=== PATIENT | male | born 1975 | race Caucasian/White ===

== ENCOUNTER 2018-08-10 23:48 | Inpatient (IN) | payer OTHER ==
[~2018-08-10] VITALS: Ht 182.9 cm; Wt 90.3 kg
[~2018-08-10 23:48] MED LIST: LIPITOR 20 MG T20 M1 PO; LISINOPRIL10 MG PO; LOPRESSOR25 PO; NEXIUM40 MG PO
[2018-08-10 23:49] VITALS: BP 167/115
[2018-08-11] MEDS ORDERED: NEXIUM40 MG (00:01)
[2018-08-11 00:23] LABS: ABSOLUTE BASOPHILS 0.1 thou/uL (0.0-0.2); ABSOLUTE EOSINOPHILS 0.2 thou/uL (0.0-0.7); ABSOLUTE LYMPHOCYTES 1.7 thou/uL (0.8-5.3); ABSOLUTE NEUTROPHILS 7.1 thou/uL (1.6-8.1); EOSINOPHILS 2.4 %; HEMATOCRIT 46.1 % (42.0-52.0); HEMOGLOBIN 15.5 gm/dL (14.0-18.0); LYMPHOCYTES 16.6 %; MCH 30.2 pg (26.0-34.0); MCHC 33.5 g/dL (28.0-37.0); MONOCYTES 10.3 %; NUCLEATED RBCS 0 /100WBC; PLATELET COUNT* 254 thou/uL (150-400); POLYS 69.7 %; RBC 5.12 mil/uL (4.50-6.00); RDW-CV 14.5 % (10.5-14.5); WBC 10.2 thou/uL (4.0-11.0)
[2018-08-11 00:25] LABS: PCO2 37.9 mmHg (35.0-45.0); PO2 69.5 mmHg (75.0-100.0); pH 7.406 (7.340-7.450)
[2018-08-11 00:49] LABS: ALBUMIN 3.9 g/dL (3.4-5.0); ALKALINE PHOSPHATASE 92 U/L (46-116); ANION GAP 9 mmol/L (7-16); BUN 14 mg/dL (7-18); CALCIUM 9.2 mg/dL (8.5-10.1); CHLORIDE 103 mmol/L (98-107); CO2 26 mmol/L (21-32); CREATININE 1.2 mg/dL (0.6-1.3); GLUCOSE 134 mg/dL (70-99); POTASSIUM 3.8 mmol/L (3.5-5.1); SGOT 31 U/L (15-37); SGPT 17 U/L (30-65); SODIUM 138 mmol/L (136-145); TOTAL BILIRUBIN 0.4 mg/dL (<0.1-1.0); TOTAL PROTEIN 7.8 g/dL (6.4-8.2)
[2018-08-11 00:52] LABS: TROPONIN-I LEVEL <0.06 ng/mL (<0.06)
[2018-08-11 02:50] VITALS: BP 128/73
[2018-08-11 03:00] VITALS: BP 132/98
[2018-08-11 08:15] VITALS: BP 147/77
[2018-08-11 12:00] VITALS: BP 113/62
[2018-08-11 16:00] VITALS: BP 122/70
[2018-08-12] VITALS: BP 152/85
[2018-08-12 04:31] VITALS: BP 111/65
[2018-08-12 04:47] LABS: HEMATOCRIT 39.9 % (42.0-52.0); MCH 30.1 pg (26.0-34.0); MCHC 33.1 g/dL (28.0-37.0); MCV 90.9 fL (80.0-100.0); MPV 8.3 fl. (7.2-11.1); RBC 4.39 mil/uL (4.50-6.00); RDW-CV 14.8 % (10.5-14.5); WBC 16.6 thou/uL (4.0-11.0)
[2018-08-12 05:01] LABS: ANION GAP 9 mmol/L (7-16); BUN 23 mg/dL (7-18); CHLORIDE 105 mmol/L (98-107); CHOLESTEROL 174 mg/dL (<200); CO2 24 mmol/L (21-32); CREATININE 1.2 mg/dL (0.6-1.3); GLUCOSE 176 mg/dL (70-99); HDL CHOLESTEROL 31 mg/dL (>40); LDL CHOLESTEROL 127 mg/dL (<100); MAGNESIUM 2.1 mg/dL (1.8-2.4); POTASSIUM 4.2 mmol/L (3.5-5.1); SODIUM 138 mmol/L (136-145); TC:HDL 5.6 Ratio (Not establshd); TRIGLYCERIDE 83 mg/dL (<150); VLDL 17 mg/dL (<40)
[2018-08-12 05:04] LABS: SERUM ASSESSMENT CLEAR
[2018-08-12 05:06] LABS: HEMOGLOBIN 13.2 gm/dL (14.0-18.0)
[2018-08-12 11:34] LABS: INFLUENZA A ANTIGEN None Detected (None Detect); INFLUENZA B ANTIGEN None Detected (None Detect)
[2018-08-12 12:45] VITALS: BP 135/73
[2018-08-12 15:30] VITALS: BP 135/78
[2018-08-13 01:12] VITALS: BP 133/76
[2018-08-13 09:59] VITALS: BP 133/71
--- NOTE | 2018-08-13 14:53 | EKG ---
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
[2018-08-13 17:17] VITALS: BP 145/91
[2018-08-14] VITALS: BP 146/87
[2018-08-14 04:00] VITALS: BP 140/60
[2018-08-14 04:31] LABS: HEMATOCRIT 40.9 % (42.0-52.0); HEMOGLOBIN 13.7 gm/dL (14.0-18.0); MCH 30.7 pg (26.0-34.0); MCHC 33.6 g/dL (28.0-37.0); MCV 91.5 fL (80.0-100.0); MPV 8.1 fl. (7.2-11.1); RBC 4.47 mil/uL (4.50-6.00); WBC 10.2 thou/uL (4.0-11.0)
[2018-08-14 04:42] LABS: CALCIUM 8.7 mg/dL (8.5-10.1); CREATININE 1.2 mg/dL (0.6-1.3); MAGNESIUM 2.5 mg/dL (1.8-2.4); POTASSIUM 4.4 mmol/L (3.5-5.1)
[2018-08-14 07:40] VITALS: BP 136/92
[2018-08-14] MEDS ORDERED: LISINOPRIL10 MG PO (11:01)
[2018-08-14] MEDS ORDERED: NEBULIZER MISCELL (11:01)
[2018-08-14] MEDS ORDERED: SINGULAIR 10 MG10 M1 PO (11:01)
[2018-08-14] MEDS ORDERED: DOXYCYCLINE 10100 MG PO (11:01)
[2018-08-14] MEDS ORDERED: PREDNISONE 10 M10 MG PO (11:01)
[2018-08-14] MEDS ORDERED: PULMICORT0.5 MG/2 M INH (11:01)
[2018-08-14] MEDS ORDERED: BENZONATATE100 MG PO (11:01)
[2018-08-14] MEDS ORDERED: IPRAT-ALBUT 0.5-3 ML INH (11:01)
[2018-08-14] MEDS ORDERED: BROVANA15 MCG/2 M INH (11:01)
[2018-08-14 11:54] VITALS: BP 136/92
[2018-08-14 12:27] VITALS: BP 147/99
== END 2018-08-14 13:15 | disposition home or self-care (01) | DRG 189 ==
LOC: M.ERS 23:48 → M.TBA-ER 08-11 02:02 → M.3W 08-11 02:02
PROVIDERS: Internal Medicine; Personal Emergency Response Attendant; ADMIT Internal Medicine
DX: J96.01 Acute respiratory failure with hypoxia (principal); J44.1 Chronic obstructive pulmonary disease with (acute) exacerbation; I10 Essential (primary) hypertension; E78.00 Pure hypercholesterolemia, unspecified; F17.210 Nicotine dependence, cigarettes, uncomplicated; Z91.14 Patient's other noncompliance with medication regimen; Z79.899 Other long term (current) drug therapy; Z88.5 Allergy status to narcotic agent

== ENCOUNTER 2018-12-31 00:58 | Inpatient (IN) | payer OTHER ==
[2018-12-31] VITALS (30 sets, daily range): BP systolic 66–202; BP diastolic 40–124
[~2018-12-31] VITALS: Ht 182.8 cm; Wt 90.3 kg
--- NOTE | ~2018-12-31 | CON ---
[address] [address] CONSULTATION Name: ELLEN BARROW Room: [address] IN .R.#: [id number] Admission: 12/31/18 Attend Phys: Madalyn Solorzano MD Discharge: Date of : 75 Report #: [id number] THIS REPORT FOR: //name// CC: Sahra Solorzano DATE OF SERVICE: 12/31/2018 REASON FOR CONSULTATION: The patient is a 43-year-old gentlemen who was seen in consultation for acute kidney injury. Consult is obtained by Dr. Solorzano. HISTORY OF PRESENT ILLNESS: The patient is a 43-year-old. He was seen in the ER last night with worsening shortness of breath, which is of few days' duration. He apparently was bad enough to be promptly intubated after he was found to be in respiratory acidosis. Apparently, the patient was seen by his primary care doctor on Tuesday. His blood pressure was found to be ave markedly elevated. There seems to be some issues with noncompliance to medications. His blood pressure meds were restarted. On my admission records, it shows that the patient was on an PANCHO inhibitor, lisinopril. According to the medical records, no cardiac history has been reported. The patient is a heavy smoker. His chest x-ray does show some mild cardiomegaly and some emphysematous changes. In the ER, he was promptly intubated. He was given a dose of Lasix. He was also found to be in hypertensive urgency. I saw the patient in the intensive care unit. He is intubated and sedated. He is on 80% FiO2 on the vent. He is sedated with propofol and Versed. After being hypertensive in the ER, his blood pressure dropped into the 80s with the sedation meds. He has made around 500 mL of urine since Oh catheter was placed and the Lasix dose was given. PAST MEDICAL HISTORY: Hypertension, COPD, dyslipidemia and tobacco abuse. HOME MEDICATIONS: Nebulizers, budesonide inhaler, Singulair, doxycycline, lisinopril and prednisone. PERSONAL, SOCIAL AND FAMILY HISTORY: Reviewed only from the chart. Heavy history of smoking reported. I have no information about the patient's occupation or family situation. REVIEW OF SYSTEMS: Unobtainable from the patient. PHYSICAL EXAMINATION: GENERAL: On my examination, the patient is intubated and sedated. VITAL SIGNS: His blood pressure is in the 80s systolic. His pulse rate is 112, temperature 36.7. HEENT: His mucous membranes are dry. ET tube is in place. NECK: Neck veins are flat. LUNGS: Diminished at the bases. [place] [address] CONSULTATION Name: ELLEN BARROW Room: [address] IN [facility]#: [id number] Admission: 12/31/18 Attend Phys: Madalyn Solorzano MD Discharge: Date of : 75 Report #: [id number] ABDOMEN: Soft. SKIN: Dry. EXTREMITIES: Show no edema. NEUROLOGIC: He is sedated, could not perform in detail. LABORATORY DATA: His labs were reviewed. White count is 13.3, hemoglobin is 13.1 and platelets are 280,000. His blood gas at this time of admission showed pH of 7.116 with pCO2 of 67 and bicarbonate of 21.2. Repeat one showed a pH of 7.210 and pCO2 of 59. He is oxygenating appropriately at that time. His chest x-ray was reviewed. His metabolic panel shows his sodium is 141, potassium is 4.0, chloride 106, bicarbonate 23, BUN is 20, creatinine is 1.6, calcium is 7.7 and glucose 296. AST 45, ALT 26, alkaline phosphatase 97 and albumin 3.1. Urinalysis shows 3+ protein, 1+ blood, many rbc's, wbc's in clumps, many bacteria and fine and coarse granular casts. Review of labs from before shows his creatinine was 1.2 a few months ago. Even though he does not carry a diagnosis of diabetes, his blood sugars have been constantly elevated since few months ago. ASSESSMENT: 1. Acute kidney injury with a baseline creatinine of 1.2. 2. The patient has heavy history of smoking, hypertension and chronic obstructive pulmonary disease. 3. He was recently initiated on PANCHO inhibitors also and given a course of antibiotics. 4. Acute kidney injury could be multifactorial with respiratory distress, hypertensive urgency, restart of PANCHO inhibitors and some volume depletion. 5. Tobacco abuse. 6. Cardiomegaly. PLAN: 1. Acute kidney injury from being hypertensive on admission. The patient is now hypotensive. His clinical exam suggests he is volume depleted. He was given a dose of Lasix in the ER. He is on normal saline at 50 mL an hour. We will watch closely as his blood pressures could be low because of the sedation also which is being lowered down to the least amount necessary. 2. If the blood pressure drops any further of the MAP, drops below 65, I would give him a bolus of 500 mL. 3. Close monitoring of renal function. 4. Check a CK level. 5. Check an ultrasound of the kidneys. 6. Send urine indices. 7. I suspect the patient may have undiagnosed diabetes also. His blood sugars have constantly been elevated. We will quantify the urine protein and also send serologies in light of the blood seen in the urine. 8. Hypertension management. Use hydralazine if needed, but for now, [place] [address] CONSULTATION Name: ELLEN BARROW Room: [address] IN [facility].#: [id number] Admission: 12/31/18 Attend Phys: Madalyn Solorzano MD Discharge: Date of : 75 Report #: [id number] Thank you for the consultation. We will continue to follow and provide necessary support. By: [id number] Becker MD /salina
[~2018-12-31 00:58] MED LIST changes: +BENZONATATE100 MG PO; +BROVANA15 MCG/2 M INH; +DOXYCYCLINE 10100 MG PO; +IPRAT-ALBUT 0.5-3 ML INH; +NEBULIZER MISCELL; +NEXIUM40 MG; +PREDNISONE 10 M10 MG PO; +PULMICORT0.5 MG/2 M INH; +SINGULAIR 10 MG10 M1 PO
[2018-12-31 01:36] LABS: ABSOLUTE BASOPHILS 0.2 thou/uL (0.0-0.2); ABSOLUTE EOSINOPHILS 0.3 thou/uL (0.0-0.7); ABSOLUTE LYMPHOCYTES 4.2 thou/uL (0.8-5.3); ABSOLUTE MONOCYTES 0.5 thou/uL (0.0-1.2); ABSOLUTE NEUTROPHILS 8.2 thou/uL (1.6-8.1); BASOPHILS 1.3 %; EOSINOPHILS 2.3 %; HEMATOCRIT 40.2 % (42.0-52.0); HEMOGLOBIN 13.1 gm/dL (14.0-18.0); LYMPHOCYTES 31.2 %; MCH 30.4 pg (26.0-34.0); MCHC 32.6 g/dL (28.0-37.0); MCV 93.3 fL (80.0-100.0); MONOCYTES 3.5 %; MPV 8.5 fl. (7.2-11.1); NUCLEATED RBCS 0 /100WBC; PLATELET COUNT* 280 thou/uL (150-400); POLYS 61.7 %; RBC 4.32 mil/uL (4.50-6.00); RDW-CV 14.6 % (10.5-14.5); WBC 13.3 thou/uL (4.0-11.0)
[2018-12-31 01:50] LABS: ANION GAP 12 mmol/L (7-16); BUN 20 mg/dL (7-18); CALCIUM 7.7 mg/dL (8.5-10.1); CHLORIDE 106 mmol/L (98-107); CO2 23 mmol/L (21-32); CREATININE 1.6 mg/dL (0.6-1.3); GLUCOSE 296 mg/dL (70-99); SODIUM 141 mmol/L (136-145)
[2018-12-31 01:54] LABS: INR 1.1; PROTIME 11.1 Seconds (9.20-11.50)
[2018-12-31 01:55] LABS: URINE BILIRUBIN NEGATIVE (Negative); URINE BLOOD 1+ (Negative); URINE CLARITY CLEAR; URINE COLOR YELLOW; URINE GLUCOSE-RANDOM TRACE (Negative); URINE KETONES NEGATIVE (Negative); URINE LEUKOCYTES-REFLEX NEGATIVE (Negative); URINE NITRITE-REFLEX NEGATIVE (Negative); URINE PROTEIN 3+ (Negative); URINE SPECIFIC GRAVITY 1.025 (1.005-1.030)
[2018-12-31 02:01] LABS: BACTERIA-REFLEX >30 Many /HPF (None Seen); COARSE GRANULAR CASTS 0-3 Few /LPF (None Seen); CRYSTALS None Seen /LPF (None Seen); FINE GRANULAR CASTS 0-3 Few /LPF (None Seen); HYALINE CASTS 0-3 Few /LPF (None Seen); MUCUS >6 Heavy strn/LPF (None Seen); SQUAMOUS 0-3 Few /LPF (0-3); WBC CLUMPS Few (None Seen)
[2018-12-31 02:01] LABS: ALBUMIN 3.1 g/dL (3.4-5.0); ALKALINE PHOSPHATASE 97 U/L (46-116); NT-PRO BRAIN NAT PEPTIDE 2499 pg/mL (<300); SGOT 45 U/L (15-37); SGPT 26 U/L (30-65); TOTAL BILIRUBIN 0.3 mg/dL (<0.1-1.0); TOTAL PROTEIN 6.2 g/dL (6.4-8.2); TROPONIN-I LEVEL <0.06 ng/mL (<0.06)
[2018-12-31 03:07] LABS: BE -9.3 mmol/L (-2 to +3); PO2 91.3 mmHg (75.0-100.0)
[2018-12-31 03:09] LABS: PCO2 67.4 mmHg (35.0-45.0); pH 7.116 (7.340-7.450)
[2018-12-31 05:41] LABS: BE -5.6 mmol/L (-2 to +3); PO2 114.8 mmHg (75.0-100.0)
[2018-12-31 05:44] LABS: PCO2 59.4 mmHg (35.0-45.0)
[2018-12-31 08:08] LABS: BE -3.5 mmol/L (-2 to +3); PCO2 38.4 mmHg (35.0-45.0); PO2 120.5 mmHg (75.0-100.0); pH 7.364 (7.340-7.450)
[2018-12-31 08:50] LABS: CHOLESTEROL 179 mg/dL (<200); HDL CHOLESTEROL 21 mg/dL (>40); LDL CHOLESTEROL 129 mg/dL (<100); TC:HDL 8.5 Ratio (Not establshd); TRIGLYCERIDE 146 mg/dL (<150); VLDL 29 mg/dL (<40)
[2018-12-31 08:51] LABS: SERUM ASSESSMENT Clear
[2018-12-31 13:56] LABS: CALCIUM 8.1 mg/dL (8.5-10.1); CREATININE 1.2 mg/dL (0.6-1.3); POTASSIUM 3.7 mmol/L (3.5-5.1)
--- NOTE | 2018-12-31 17:16 | NUR ---
PT ON VENT AND SEDATED WITH VERSED AND PROPOFOL, TITRATED PER PROTOCOL. REMAINS CALM AND AROUSABLE TO PAIN. NS AT 100 MLS/HR. BP SOFT IN THE MORNING, STABLE DURING THE DAY, VSS. ART LINE INSERTED. VQ SCAN AND US RENAL DONE. NG AT LIS. NEW IV STARTED AT LT FOREARM. ROUTINE CARE GIVEN.
[2018-12-31 18:08] LABS: COMPLEMENT-C4 18 mg/dL (14-44)
[2019-01-01] VITALS (27 sets, daily range): BP systolic 77–175; BP diastolic 35–101
[2019-01-01 04:17] LABS: ABSOLUTE LYMPHOCYTES 0.8 thou/uL (0.8-5.3); ABSOLUTE MONOCYTES 0.3 thou/uL (0.0-1.2); MONOCYTES 2.6 %; RDW-CV 14.8 % (10.5-14.5)
[2019-01-01 04:19] LABS: BASOPHILS 0.2 %; HEMOGLOBIN 12.3 gm/dL (14.0-18.0); LYMPHOCYTES 7.6 %; MCH 30.6 pg (26.0-34.0); MCHC 33.4 g/dL (28.0-37.0); MCV 91.6 fL (80.0-100.0); MPV 8.7 fl. (7.2-11.1); NUCLEATED RBCS 0 /100WBC; PLATELET COUNT* 203 thou/uL (150-400); POLYS 89.6 %; RBC 4.04 mil/uL (4.50-6.00); WBC 10.1 thou/uL (4.0-11.0)
[2019-01-01 05:16] LABS: ALBUMIN 2.8 g/dL (3.4-5.0); CALCIUM 8.2 mg/dL (8.5-10.1); POTASSIUM 3.7 mmol/L (3.5-5.1); TOTAL BILIRUBIN 0.3 mg/dL (<0.1-1.0); TOTAL PROTEIN 5.8 g/dL (6.4-8.2)
[2019-01-01 05:20] LABS: PHOSPHORUS* 3.1 mg/dL (2.5-4.9); URIC ACID* 4.2 mg/dL (2.6-7.2)
--- NOTE | 2019-01-01 06:55 | NUR ---
VSS. ASSESSMENT CHARTED. PATIENT PROGRESSING TOWARD GOALS. LUNG SOUNDS IMPROVING. PATIENT REMAINS ON PROPOFOL AT 10 AND VERSED AT 5. PATIENT'S EX IN ROOM AT BEDSIDE AT START OF SHIFT. URINE OUTPUT CLOUDY AND FILLED WITH SEDIMENT.
[2019-01-01 08:43] LABS: BE -4.3 mmol/L (-2 to +3); PCO2 32.3 mmHg (35.0-45.0); PO2 116.6 mmHg (75.0-100.0); pH 7.399 (7.340-7.450)
--- NOTE | 2019-01-01 09:01 | CON ---
[address] [address] CONSULTATION Name: ELLEN BARROW Room: [address] IN [facility].#: [id number] Admission: 12/31/18 Attend Phys: Madalyn Solorzano MD Discharge: Date of : 75 Report #: [id number] THIS REPORT FOR: //name// CC: Sahra Solorzano DATE OF SERVICE: 12/31/2018 REASON FOR CONSULTATION: Acute respiratory failure. HISTORY OF PRESENT ILLNESS: This is a 43-year-old male patient, apparently has history of COPD, on nebulization treatment at home, who presented to the Emergency Room with increasing shortness of breath of couple of weeks' duration. Apparently, he followed with his primary care physician recently and he was started back on his antihypertensive medication because of high blood pressure. He smokes up to 2 packs per day. During my visit, he was intubated on sedation, did not participate in the history. He received Lasix in the ER and a CT scan showed bilateral infiltrates with signs of fluid overload. During my visit, he was on propofol low dose and Versed 6 mg per hour, looking comfortable and he was on assist control ventilation. ALLERGIES: CODEINE. MEDICATIONS: He is on DuoNeb, Brovana, Pulmicort, doxycycline, lisinopril. PAST MEDICAL HISTORY: Hypertension, history of MRSA in the past, hyperlipidemia, history of COPD, active smoker. PAST SURGICAL HISTORY: No major chest surgery. FAMILY HISTORY: Not obtainable due to the patient's condition. SOCIAL HISTORY: Per the record, he is an everyday smoker up to 2 packs per day, does not drink alcohol excessively. No history of drug abuse. REVIEW OF SYSTEMS: Unobtainable due to the patient's condition. PHYSICAL EXAMINATION: VITAL SIGNS: He is on the vent, O2 saturation 98%, blood pressure around 100 systolic over 50, pulse rate of 100, temperature 36.7. GENERAL: Looks his stated age, intubated and sedated. HEAD: Normocephalic, atraumatic. EYES: Pupils reactive to light. ORAL CAVITY: Moist mucous membrane. Mallampati of 2-3. NECK: Supple. Full range of movement. Trachea central. CHEST: Diminished air movement bilaterally with prolonged [place] [address] CONSULTATION Name: ELLEN BARROW Room: [address] IN [facility]#: [id number] Admission: 12/31/18 Attend Phys: Madalyn Solorzano MD Discharge: Date of : 75 Report #: [id number] rare end-expiratory wheezes, rhonchi at the bases. HEART: S1, S2, no murmur. ABDOMEN: Benign, soft, lax, nontender, positive bowel sounds. No masses felt. EXTREMITIES: Lower extremity, trace edema, no calf tenderness. SKIN: Normal for age and race, no rash. NEUROLOGIC: He is sedated. PSYCHIATRIC: Mood and affect could not be evaluated. LABORATORY DATA: He had multiple chest imaging including chest x-ray and CT scan. The chest x-ray showed signs of vascular congestion with cardiomegaly and interstitial prominence with bilateral consolidation, which was documented in the CT scan, although the official report of the CT scan is still pending. White blood cell count 13.3, hemoglobin 15.1 and platelets of 280. He had multiple sets of ABGs initially demonstrating hypercapnic respiratory failure; however, the last ABG this morning 7.36/38/120 and this was done on 70% FiO2. Since then, his FiO2 was decreased. His BNP was elevated. His creatinine was 1.6 with a BUN of 20, potassium 4, sodium 141. IMPRESSION: 1. Acute hypoxic and hypercapnic respiratory failure. 2. Pulmonary infiltrate. 3. Fluid overload. 4. Pulmonary edema. 5. Congestive heart failure, could be related to hypertension. 6. Acute renal failure. 7. Pneumonia. 8. Consolidation. 9. Chronic obstructive pulmonary disease exacerbation. The patient's respiratory failure is multifactorial related to fluid overload, pleural effusion, pneumonia and chronic obstructive pulmonary disease exacerbation. At this point, we are waiting for the final official CTA report. I would continue the antibiotic, continue steroids, scheduled nebulization treatment, monitor fluid status and avoid fluid overload. Echo is pending this morning. I would keep him on the current plan of sedation; however, he might need more Versed and fentanyl compared to propofol because of soft blood pressure at this point. Consider diuresis p.r.n. We will do a repeat chest x-ray. We will consider weaning trial in the morning. Thank you for the consult. Discussed with RN. Critical care time 35 minutes. <ELECTRONICALLY SIGNED> By: Samm Camarillo MD 01/01/19 0901 0848 0915Wale Marroquin MD /nt
--- NOTE | 2019-01-01 10:44 | NUR ---
CM spoke with Pt's (they are ) in [facility]. Pt is normally A&O. Resides at home. Active and independent. No DME. No hx of HH or SNF. Supportive family. Goal is home at ri. Following.
[2019-01-01 11:52] LABS: pH 7.398 (7.340-7.450)
[2019-01-01 12:07] LABS: PO2 58.3 mmHg (75.0-100.0)
[2019-01-01 15:06] LABS: HIV-1/HIV-2 ANTIBODY Non Reactive (Non Reactive)
--- NOTE | 2019-01-01 15:38 | NUR ---
PT EXTUBATED AT 1005, EXTUBATION UNEVENTFUL. O2 SUPPORT OF NC AT 4L/MIN, INCREASED TO 5 L/MIN AFTER POST EXTUBATION PO2 59. BED SIDE SWALLOW PASSED. OKAY FOR CLEAR LIQUID DIET PER PULMONOLOGY.
--- NOTE | 2019-01-01 16:56 | 2DMMODE ---
[place] [address] 2 D/M-MODE ECHOCARDIOGRAM Name: ELLEN BARROW Room: [address] IN .R.#: [id number] Admission: 12/31/18 Attend Phys: Madalyn Solorzano, Discharge: Date of : 75 Date of Service: 01/01/19 1656 Report #: [id number] THIS REPORT FOR: //name// APPROVED REPORT Study performed: 01/01/2019 09:30:57 EXAM: Comprehensive 2D, Doppler, and color-flow Echocardiogram Patient Location: Bedside BSA: 2.09 HR: 119 bpm BP: 147/87 mmHg Other Information Study Quality: Good Indications Respiratory Failure, Pulmonary Edema, UTI 2D Dimensions IVSd: 13.08 (7-11mm) LVOT Diam: 22.87 (18-24mm) LVDd: 59.72 mm PWd: 12.90 (7-11mm) Ascending Ao: 29.60 (22-36mm) LVDs: 58.92 (25-40mm) Aortic Root: 33.13 mm Volumes Left Atrial Volume (Systole) LA ESV Index: 30.80 mL/m2 Aortic Valve AoV Peak Sergey.: 0.78 m/s AO Peak Gr.: 2.45 mmHg LVOT Max P.19 mmHg AO Mean Gr.: 1.72 mmHg LVOT Mean P.23 mmHg LVOT Max V: 0.74 m/s AO V2 VTI: 10.88 cm LVOT Mean V: 0.52 m/s LIZBETH (VTI): 4.88 cm2 LVOT V1 VTI: 12.94 cm Mitral Valve E/A Ratio: 4.94 MV Decel. Time: 200.54 ms MV E Max Sergey.: 0.97 m/s MV PHT: 58.16 ms MVA (PHT): 3.78 [place] [address] 2 D/M-MODE ECHOCARDIOGRAM Name: ELLEN BARROW Room: [address] IN [facility]#: [id number] Admission: 12/31/18 Attend Phys: Madalyn Solorzano, Discharge: Date of : 75 Date of Service: 01/01/19 1656 Report #: [id number] TDI E/Lateral E': 12.13 E/Medial E': 16.17 Medial E' Sergey.: 0.06 m/s Lateral E' Sergey.: 0.08 m/s Pulmonary Valve PV Peak Sergey.: 0.53 m/s PV Peak Gr.: 1.11 mmHg Left Ventricle Left ventricle is moderately dilated. There is diffuse hypokinesis of left ventricular wall motion. There is normal left ventricular wall thickness. Left ventricular ejection fraction is moderate to severely decreased. LVEF is 25-30%. Right Ventricle The right ventricle is normal size. The right ventricular systolic function is normal. Atria The left atrium size is normal. The right atrium size is normal. Aortic Valve The aortic valve is normal in structure. No aortic regurgitation is present. There is no aortic valvular stenosis. Mitral Valve The mitral valve is normal in structure. Moderate mitral regurgitation. No evidence of mitral valve stenosis. Tricuspid Valve The tricuspid valve is normal in structure. There is no tricuspid valve regurgitation noted. Pulmonic Valve The pulmonary valve is normal in structure. There is no pulmonic valvular regurgitation. Great Vessels The aortic root is normal in size. The inferior vena cava is dilated with no decrease in size with inspiration Pericardium There is [place] [address] 2 D/M-MODE ECHOCARDIOGRAM Name: ELLEN BARROW Room: [address]#: [id number] Admission: 12/31/18 Attend Phys: Madalyn Solorzano, Discharge: Date of : 75 Date of Service: 01/01/19 1656 Report #: [id number] <Conclusion> Left ventricle is moderately dilated. There is normal left ventricular wall thickness. Left ventricular ejection fraction is moderate to severely decreased. LVEF is 25-30%. The right ventricle is normal size. The aortic valve is normal in structure. The mitral valve is normal in structure. Moderate mitral regurgitation. No evidence of mitral valve stenosis. The tricuspid valve is normal in structure. The inferior vena cava is dilated with no decrease in size with inspiration There is no pericardial effusion. There is diffuse hypokinesis of left ventricular wall motion. <ELECTRONICALLY SIGNED> By: Natan Bond MD, [facility] 01/01/19 [phone] Natan Bond MD, FACC /INF
--- NOTE | 2019-01-01 16:57 | EKG ---
[place] [address] ELECTROCARDIOGRAM REPORT Name: ELLEN BARROW Room: [address] ADM IN M.R.#: [id number] Admission: 12/31/18 Attend Phys: Madalyn Solorzano MD Discharge: Date of : 75 Report #: [id number] THIS REPORT FOR: //name// [facility] ED Test Date: 2018-12-31 Test Time: 01:17:25 Pat Name: ELLEN BARROW Department: Room: [facility] Gender: M Template Maker: : 1975 Requested By: Mony Hines Order Number: [id number] MD: Joshua Ma Measurements Intervals [place] Rate: 133 P: 47 ME: 127 QRS: 21 QRSD: 94 T: 85 QT: 312 QTc: 465 Interpretive Statements Sinus tachycardia Probable left atrial enlargement RSR' in V1 or V2, probably normal variant Left ventricular hypertrophy Compared to ECG 08/10/2018 23:55:49 RSR' in V1 or V2 now present Electronically Signed On 01-01-2019 16:57:27 CDT by Joshua Ma [email or web address] <ELECTRONICALLY SIGNED> By: Joshua Ma MD, FACC 01/01/19 1657 6 Joshua Ma MD, [facility] /EPI
--- NOTE | 2019-01-01 17:05 | EKG ---
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[facility] : 1975 Requested By: Cinthya Pérez Order Number: [id number] MD: Joshua Ma Measurements Intervals [place] Rate: 114 P: 66 MS: 154 QRS: 20 QRSD: 92 T: 75 QT: 360 QTc: 496 Interpretive Statements Sinus tachycardia Probable left atrial enlargement Probable left ventricular hypertrophy Borderline prolonged QT interval Compared to ECG 08/10/2018 23:55:49 No significant changes Electronically Signed On 01-01-2019 17:04:55 CDT by Joshua Ma [email or web address] <ELECTRONICALLY SIGNED> By: Joshua Ma MD, [facility] 01/01/19 1704 0839 0839 Joshua Ma MD, [facility] /EPI
[2019-01-01 18:11] LABS: HEPATITIS B SURFACE AG Negative (Negative)
--- NOTE | 2019-01-01 18:51 | NUR ---
PT IS ALERT AND ORIENTED, ST ON THE MONITOR. SATS >92% IN NC 5L/MIN. BP STABLE. TOLERATING CLEAR LIQUID DIET. GOOD OUTPUT. NS AT 100 MLS/HR. ECHO DONE. NEPHRO SIGNED OFF ON HIM. SELF CARE BATH AND ORAL CARE GIVEN.
[2019-01-02] VITALS (23 sets, daily range): BP systolic 109–176; BP diastolic 73–116
[2019-01-02 05:01] LABS: HEMATOCRIT 38.4 % (42.0-52.0); HEMOGLOBIN 12.8 gm/dL (14.0-18.0); MCH 30.7 pg (26.0-34.0); MCHC 33.4 g/dL (28.0-37.0); MCV 91.8 fL (80.0-100.0); MPV 9.3 fl. (7.2-11.1); RBC 4.18 mil/uL (4.50-6.00); RDW-CV 15.3 % (10.5-14.5); WBC 11.9 thou/uL (4.0-11.0)
[2019-01-02 05:32] LABS: ALBUMIN 2.8 g/dL (3.4-5.0); CALCIUM 8.3 mg/dL (8.5-10.1); MAGNESIUM 2.4 mg/dL (1.8-2.4); TOTAL BILIRUBIN 0.2 mg/dL (<0.1-1.0); TOTAL PROTEIN 5.9 g/dL (6.4-8.2)
[2019-01-02 05:43] LABS: BE -5.1 mmol/L (-2 to +3); PCO2 32.4 mmHg (35.0-45.0); PO2 90.3 mmHg (75.0-100.0); pH 7.384 (7.340-7.450)
[2019-01-02 11:51] LABS: URINE BILIRUBIN NEGATIVE (Negative); URINE BLOOD 1+ (Negative); URINE CLARITY CLEAR; URINE COLOR YELLOW; URINE GLUCOSE-RANDOM NEGATIVE (Negative); URINE KETONES NEGATIVE (Negative); URINE LEUKOCYTES-REFLEX NEGATIVE (Negative); URINE NITRITE-REFLEX NEGATIVE (Negative); URINE PROTEIN NEGATIVE (Negative); URINE SPECIFIC GRAVITY <= 1.005 (1.005-1.030); URINE UROBILINOGEN 0.2 E.U./dl (0.2-1.0)
[2019-01-02 11:58] LABS: BACTERIA-REFLEX 1-9 Few /HPF (None Seen); CASTS None Seen /LPF (None Seen); MUCUS None Seen strn/LPF (None Seen); SQUAMOUS 0-3 Few /LPF (0-3); URINE RBC 3-10 Few /HPF (0-2); URINE WBC-REFLEX 0-5 Rare /HPF (0-5)
[2019-01-02 11:59] LABS: CRYSTALS None Seen /LPF (None Seen)
--- NOTE | 2019-01-02 12:58 | NUR ---
RECEIVED REPORT AND ASSUMED CARE AT 0700.PT DENIES COMPLAINTS OF PAIN. ASSESSMENT COMPLETED CHARTED. MEDICATION ADMIN PER ORDERS. BED LOCKED IN LOWEST POSITION.
[2019-01-02 14:09] LABS: ANA INTERPRETATION Negative (Negative)
[2019-01-03] VITALS (20 sets, daily range): BP systolic 119–144; BP diastolic 74–102
[2019-01-03 02:10] LABS: GLYCOHEMOGLOBIN (HGB A1C) 5.7 % (4.8-5.6)
[2019-01-03 05:23] LABS: HEMOGLOBIN 12.9 gm/dL (14.0-18.0); MCH 30.6 pg (26.0-34.0); MCHC 33.8 g/dL (28.0-37.0); MCV 90.5 fL (80.0-100.0); MPV 8.8 fl. (7.2-11.1); RBC 4.2 mil/uL (4.50-6.00); RDW-CV 14.7 % (10.5-14.5); WBC 11.2 thou/uL (4.0-11.0)
[2019-01-03 05:45] LABS: CALCIUM 8.7 mg/dL (8.5-10.1); CREATININE 1.1 mg/dL (0.6-1.3); MAGNESIUM 2.3 mg/dL (1.8-2.4); POTASSIUM 3.7 mmol/L (3.5-5.1); TROPONIN-I LEVEL 0.09 ng/mL (<0.06)
--- NOTE | 2019-01-03 07:37 | NUR ---
VSS. PT REMAINED ON 3L O2 PER NC THROUGH THE NIGHT, O2 SAT REMAINED >92%. PT DENIED PAIN AND SOA THROUGHOUT THE NIGHT. NPO AFTER MIDNIGHT FOR POSSIBLE CARDIAC CATH TODAY. CALL LIGHT WITHIN REACH.
--- NOTE | 2019-01-03 10:54 | NUR ---
RECEIVED REPORT AND ASSUMED CARE AT 0700. VSS. PT DENIES COMPLAINTS OF PAIN. ASSESSMENT COMPLETED CHARTED, PT UP WITH ASSIST TO BSC. DISCUSSED PLAN OF CARE WITH PT, VERBALIZED UNDERSTANDING. CARDIAC CATH TODAY. TRNSF TO TELE. REPORT CALLED TO RN. PT TRANSPORTED BY WITH NURSING.
--- NOTE | 2019-01-03 13:08 | NUR ---
RE: CHF medication education. Spoke with the pt regarding heart failure medication. The discussion focused primarily on lisinopril and metoprolol. Discussed rationale for therapy and importance of compliance with the prescribed regimen. Reviewed possible side effects and potential management Left a medication information sheet and pharmacy contact information for any further questions or issues. Thank you.
--- NOTE | 2019-01-03 16:19 | NUR ---
PT TRANSFERED FROM ICU TO ROOM 210 AT APPROX 1050. PT IS A/O X4, FRUSTRATED DUE TO BEING NPO FOR CARDIAC CATH TODAY. LOVE IN PLACED DRAINING YELLOW URINE TO STAY UNTIL AFTER CATH. PTS VSS, ON 3L O2 SATS 95%, BED ALARM ON. PT LEFT UNIT FOR CATH AT [id number]. RETURNED APPROX 1530. PT DENIES PAIN, RIGHT GROIN SOFT, NO HEMATOMA, DRESSING C/D/I. PT PROVIDED WITH SNACKS, INSTRUCTED BEDREST UNTIL 2029. PT VERBALIZED UNDERSTANDING. WILL CONTINUE WITH PLAN OF CARE.
--- NOTE | 2019-01-03 16:21 | CARD ---
[address] [address] CARDIAC CATH REPORT Name: ELLEN BARROW Room: [address] IN [facility]#: [id number] Admission: 12/31/18 Attend Phys: Madalyn Solorzano MD Discharge: Date of : 75 Report #: [id number] THIS REPORT FOR: //name// APPROVED REPORT Study performed: 01/03/2019 14:32:47 Patient Details Patient Status: In-Patient Room #: The patient is a 43 year-old male Event Personnel Natan Bond Concession Supervisor, Sera Irene Web Applications Developer, Katty Velázquez RTR Scrub, Markus Willis HOSPITAL EDUCATION COORDINATOR Monitor, Georgie Neal RTR Monitor Procedures Performed Left Heart Cath w/or w/o Coronaries [id number] [facility] Indication CHF Current Status: Yes Risk Factors Hypercholesterolemia, Hypertension Procedure Narrative The patient was brought electively to the Cardiac Catheterization Laboratory and was prepped and draped in a sterile manner. The right femoral was infiltrated with 2% Lidocaine subcutaneous anesthesia. A Vanderwagen 6 FR sheath was inserted into the RFA. Coronary angiography was performed using coronary diagnostic catheters. The right coronary system was accessed and visualized with a Diagnostic catheter. The left coronary system was accessed and visualized with a JL 4 6F catheter. The left ventricle was accessed and visualized with a STRAIGHT PIG catheter. Left ventricular/Aortic Valve gradient assessed via catheter pullback. Pre-demployment femoral angiogram was performed . Closure device was deployed with a Fr MynxGrip 6/7F. The patient tolerated the procedure well and there were no complications associated with the procedure. There was no hematoma. Intraoperative Conscious Sedation Sedation start time: 1506 Case end Time: 1521 Fentanyl 25 mcg Versed 1 [place] [address] CARDIAC CATH REPORT Name: ELLEN BARROW Room: [address]#: [id number] Admission: 12/31/18 Attend Phys: Madalyn Solorzano MD Discharge: Date of : 75 Report #: [id number] Fluoro Time: 3.7 minutes Dose: DAP 65388 cGycm2 614 mGy Contrast Type and Amount: Visipaque 85 ml Coronary Angiography The patient's coronary anatomy is right dominant. Diagnostic Cath Left Main 0% narrowing LAD 0% narrowing Circumflex Nondominant vessel with 0% narrowing Right Coronary Large dominant vessel with 0% narrowing Left Ventriculography Left Ventriculography was not performed. Hemodynamics The aortic pressure is 126/69 mmHg with a mean of 88 mmHg. The left ventricular pressure is 145/10 mmHg with a mean of mmHg. The left ventricular end diastolic pressure is 33 mmHg. There was no gradient across the aortic valve upon pullback. Conclusion #1 normal coronary arteries #2 severe elevation of left ventricular end-diastolic pressure at rest Recommendations Medical Therapy <ELECTRONICALLY SIGNED> By: Natan Bond MD, [facility] 01/03/191619 19 19Natan Bond MD, FAC /INF
[2019-01-03 17:10] LABS: GLOBULIN TOTAL 2.6 g/dL (2.2-3.9); M-SPIKE Not Observed g/dL (Not Observed)
[2019-01-04] VITALS: BP 129/87
[2019-01-04 04:03] VITALS: BP 122/84
[2019-01-04 05:13] LABS: HEMATOCRIT 37.8 % (42.0-52.0); HEMOGLOBIN 12.8 gm/dL (14.0-18.0); MCH 30.8 pg (26.0-34.0); MCHC 33.9 g/dL (28.0-37.0); MCV 90.9 fL (80.0-100.0); RBC 4.15 mil/uL (4.50-6.00); RDW-CV 14.7 % (10.5-14.5); WBC 11.5 thou/uL (4.0-11.0)
[2019-01-04 05:17] LABS: ALBUMIN 2.8 g/dL (3.4-5.0); CALCIUM 8.5 mg/dL (8.5-10.1); CREATININE 1.1 mg/dL (0.6-1.3); MAGNESIUM 2.4 mg/dL (1.8-2.4); POTASSIUM 3.3 mmol/L (3.5-5.1); TOTAL BILIRUBIN 0.6 mg/dL (<0.1-1.0); TOTAL PROTEIN 5.9 g/dL (6.4-8.2)
[2019-01-04 08:00] VITALS: BP 141/97
[2019-01-04 11:40] VITALS: BP 117/87
--- NOTE | 2019-01-04 11:46 | NUR ---
Spoke with , do not anticipate dc until early next week. Pt may need HH at dc.
--- NOTE | 2019-01-04 11:47 | NUR ---
Spoke with , Pt not medically stable for dc. Anticipate a few more days in the hospital. Pt may need HH at dc. Following.
--- NOTE | 2019-01-04 12:09 | EKG ---
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 : 1975 Requested By: Madalyn Solorzano Order Number: [id number] Reading MD: Natan Bond Measurements Intervals [place] Rate: 89 P: 54 IN: 160 QRS: 23 QRSD: 90 T: 65 QT: 399 QTc: 486 Interpretive Statements Sinus rhythm Probable left atrial enlargement Probable left ventricular hypertrophy Borderline prolonged QT interval Compared to ECG 01/01/2019 08:39:22 Sinus tachycardia no longer present Electronically Signed On 01-04-2019 12:09:12 CDT by Natan Bond [email or web address] <ELECTRONICALLY SIGNED> By: Natan Bond MD, [facility] 01/04/19 1209 [id number] Natan Bond MD, [facility] /EPI
[2019-01-04 15:57] VITALS: BP 133/77
--- NOTE | 2019-01-04 16:24 | NUR ---
RECEIVED REPORT FROM BOBBY CHENG. ASSUMED CARE OF PT AROUND 0730. PT A&O X4. VSS. A AUXILIARY IN PLACE. AM ASSESSMENT AND VITALS COMPLETED CHARTED. IV'S INTACT AND INFUSING. MEDS PER EMAR. EX-/GIRLFRIEND AT BEDSIDE THIS AM. LOVE CATHETER REMOVED, PT ABLE TO VOID POST CATHTER REMOVAL. PT ABLE TO SHOWER WITH ASSISTANCE THIS AFTERNOON. 2L PER NC REMAINS IN PLACE. PT SOB WITH EXERTION AT TIMES. PT UP TO BEDSIDE CHAIR FOR MEALS. PT HAS DENIED PAIN OR DISCOMFORT THIS SHIFT. PT HOPING TO GO HOME SOON. PT CURRENTLY SITTING UP IN BEDSIDE CHAIR. FALL PRECAUTIONS IN PLACE. CALL LIGHT IS WITHIN REACH. HOURLY ROUNDING PERFORMED. WCTM FOR DURATION OF SHIFT.
[2019-01-04 19:10] LABS: URINE PROTEIN (MG/DL) 19.7 mg/dL (Not Estab.)
[2019-01-04 20:00] VITALS: BP 135/91
[2019-01-05] VITALS: BP 124/89
[2019-01-05 03:49] VITALS: BP 127/85
[2019-01-05 04:16] LABS: HEMATOCRIT 39.2 % (42.0-52.0); HEMOGLOBIN 13.1 gm/dL (14.0-18.0); MCH 30.3 pg (26.0-34.0); MCHC 33.4 g/dL (28.0-37.0); MPV 9.1 fl. (7.2-11.1); RBC 4.3 mil/uL (4.50-6.00); RDW-CV 14.5 % (10.5-14.5); WBC 12.6 thou/uL (4.0-11.0)
[2019-01-05 04:23] LABS: CALCIUM 8.6 mg/dL (8.5-10.1); CREATININE 1.1 mg/dL (0.6-1.3); MAGNESIUM 2.3 mg/dL (1.8-2.4)
--- NOTE | 2019-01-05 06:55 | NUR ---
ASSUMED PT CARE AT 1930. ASSESSMENT COMPLETED CHARTED. NO C/O PAIN OR DISCOMFORT. UP AD SHIRA. PT RESTING IN BED AT THIS TIME BUT STATED UNABLE TO SLEEP. VSS. WILL CONTINUE TO MONITOR.
[2019-01-05 08:00] VITALS: BP 122/90
[2019-01-05 11:06] VITALS: BP 125/86
--- NOTE | 2019-01-05 16:50 | NUR ---
ASSUSSMED CARE OF PT AT APPOX [phone]. ASSESSMENT COMPLETED CHARTED. MEDICATIONS GIVEN CHARTED. PT DENIES HAVING ANY PAIN. PT TEACHING COMPLETED ABOUT USE OF INCENTIVE SPIROMETER. PT VERBALIZED UNDERSTANDING. PT ENCOURAGED TO GET UP OUT OF BED. PT UP AND WALKING AROUND IN ROOM. THERAPY IN WITH PT TODAY, PT WEANED OFF OF 2L O2 TO RA. PT 02 SAT AT 96 WHILE WALKING AROUND.
[2019-01-05 17:29] VITALS: BP 109/71
--- NOTE | 2019-01-05 18:41 | NUR ---
I HAVE REVIEWED AND AGREE WITH THE ASSESMENT AND NOTE OF ISABELA Nguyen RN ON 01/05/19
--- NOTE | 2019-01-05 19:36 | NUR ---
REPORT GIVEN TO NIGHT NURSE. PT NEEDS MEET. CALL LIGHT WTIHIN REACH. HOURLY ROUNDING COMPLETED. PT TEACHING ON IS REENFORCED. PT VERBALIZED UNDERSTANDING.
[2019-01-05 20:00] VITALS: BP 139/100
[2019-01-06] VITALS: BP 114/78
[2019-01-06 04:00] VITALS: BP 136/91
[2019-01-06 05:10] LABS: HEMATOCRIT 39.6 % (42.0-52.0); HEMOGLOBIN 13.5 gm/dL (14.0-18.0); MCH 30.7 pg (26.0-34.0); MCHC 34.1 g/dL (28.0-37.0); MCV 90.1 fL (80.0-100.0); MPV 9.5 fl. (7.2-11.1); RBC 4.39 mil/uL (4.50-6.00); RDW-CV 14.5 % (10.5-14.5); WBC 13.2 thou/uL (4.0-11.0)
[2019-01-06 05:17] LABS: ALBUMIN 2.8 g/dL (3.4-5.0); CALCIUM 8.5 mg/dL (8.5-10.1); MAGNESIUM 2.2 mg/dL (1.8-2.4); POTASSIUM 3.8 mmol/L (3.5-5.1); TOTAL BILIRUBIN 0.3 mg/dL (<0.1-1.0); TOTAL PROTEIN 6.2 g/dL (6.4-8.2)
--- NOTE | 2019-01-06 06:55 | NUR ---
ASSUMED PT CARE AT 1930. ASSESSMENT COMPLETED CHARTED. ABLE TO MAKE NEEDS KNOWN. UP WALKING AROUND UNIT A COUPLE TIMES THROUGH THE NIGHT. NO C/O PAIN, JUST SORENESS FROM LAYING IN BED. PT HOPING HE CAN GO HOME TODAY. VSS. STATES HE ISNT ABLE TO LAY FLAT ANYMORE BUT DOESNT HAVE ANY SOA AND NO O2 NEEDED. WILL CONTINUE TO MONITOR.
[2019-01-06 08:00] VITALS: BP 120/87
[2019-01-06] MEDS ORDERED: MUCINEX600 MG PO (11:14)
[2019-01-06] MEDS ORDERED: CEFDINIR300 MG PO (11:14)
[2019-01-06] MEDS ORDERED: LASIX 20 MG TAB20 MG PO (11:14)
[2019-01-06] MEDS ORDERED: METOPROLOL SUCC25 M1 PO (11:14)
[2019-01-06] MEDS ORDERED: PREDNISONE 10 M10 MG PO (11:14)
[2019-01-06] MEDS ORDERED: SPIRONOLACTONE25 MG PO (11:14)
[2019-01-06] MEDS ORDERED: ATORVASTATIN CA20 MG PO (11:14)
[2019-01-06 12:00] VITALS: BP 118/78
--- NOTE | 2019-01-06 13:54 | NUR ---
ASSUSSMED CARE OF PT APPROX 0730. REASSESSMENT COMPLETED CHARTED. MEDICATIONS GIVEN CHARTED. PT UP AND WALKING IN THE HALLWAY THIS SHIFT. PT NEEDS MET. PT EDUCATION DONE ON USE OF IS. PT VERBALIZED UNDERSTANDING.
[2019-01-06] MEDS ORDERED: KLOR-CON 1010 MEQ PO (14:27)
--- NOTE | 2019-01-06 15:23 | NUR ---
PT DISCHARGE TEACHING COMPLETED. PT VERBALIZED UNDERSTANDING. PT ESCORTED BY STAFF TO VEHICLE IN WHEELCHAIR AT APPROX 1505.
--- NOTE | 2019-01-06 16:48 | NUR ---
I HAVE REVIEWED AND AGREE WITH THE ASSESMENT AND NOTES OF ISABELA Nguyen RN ON 01/06/19
== END 2019-01-06 15:05 | disposition home or self-care (01) | DRG 208 ==
LOC: M.ERS 00:58 → M.ICU 04:50 → M.TBA-ER 04:50 → M.2W 04:50 → M.ICU 04:54 → M.2W 01-03 11:01
PROVIDERS: Emergency Medicine; Internal Medicine Nephrology; Internal Medicine Pulmonary Disease; ADMIT Internal Medicine
PROC: 5A1945Z Respiratory Ventilation, 24-96 Consecutive Hours (ICD-10-PCS; principal; 2018-12-31)
PROC: 0BH17EZ Insertion of Endotracheal Airway into Trachea, Via Natural or Artificial Opening (ICD-10-PCS; principal; 2018-12-31)
PROC: 5A09357 Assistance with Respiratory Ventilation, Less than 24 Consecutive Hours, Continuous Positive Airway Pressure (ICD-10-PCS; 2019-01-02)
PROC: B211YZZ Fluoroscopy of Multiple Coronary Arteries using Other Contrast (ICD-10-PCS; 2019-01-03)
PROC: 4A023N7 Measurement of Cardiac Sampling and Pressure, Left Heart, Percutaneous Approach (ICD-10-PCS; 2019-01-03)
PROC: B41FYZZ Fluoroscopy of Right Lower Extremity Arteries using Other Contrast (ICD-10-PCS; 2019-01-03)
DX: J15.6 Pneumonia due to other Gram-negative bacteria (principal); J96.02 Acute respiratory failure with hypercapnia; N17.0 Acute kidney failure with tubular necrosis; I50.23 Acute on chronic systolic (congestive) heart failure; J96.01 Acute respiratory failure with hypoxia; N30.00 Acute cystitis without hematuria; R65.10 Systemic inflammatory response syndrome (SIRS) of non-infectious origin without acute organ dysfunction; E87.2 Acidosis; I11.0 Hypertensive heart disease with heart failure; E78.00 Pure hypercholesterolemia, unspecified; J43.9 Emphysema, unspecified; E78.5 Hyperlipidemia, unspecified; E87.70 Fluid overload, unspecified; F17.210 Nicotine dependence, cigarettes, uncomplicated; I95.9 Hypotension, unspecified; R73.9 Hyperglycemia, unspecified; I25.5 Ischemic cardiomyopathy; Z86.14 Personal history of Methicillin resistant Staphylococcus aureus infection; Z88.6 Allergy status to analgesic agent; Z79.82 Long term (current) use of aspirin; Z79.899 Other long term (current) drug therapy; I16.0 Hypertensive urgency